=== PATIENT | female | born 1940 | race Caucasian/White ===

== ENCOUNTER 2024-09-01 10:36 | Emergency (ER) | payer OTHER ==
[~2024-09-01] VITALS: Ht 157.5 cm; Wt 68.0 kg
[2024-09-01 10:40] VITALS: BP_SYST 124; PULSE 87; RESP 19; TEMP 98.3; O2SAT 96
[2024-09-01 11:49] LABS: BILIRUBIN,URINE NEGATIVE (NEGATIVE); BLOOD, URINE NEGATIVE (NEGATIVE); CLARITY/URINE CLEAR (CLEAR); COLOR,URINE YELLOW (YELLOW); GLUCOSE,URINE 2+ (NEGATIVE); KETONES,URINE NEGATIVE (NEGATIVE); LEUKOCYTE ESTERASE ,URINE NEGATIVE (NEGATIVE); NITRITE, URINE NEGATIVE (NEGATIVE); PROTEIN URINE 1+ (NEGATIVE); UROBILINOGEN,URINE 0.2 (0.2-1.0)
[2024-09-01 11:55] LABS: BASOPHILS # (AUTO) 0.1 K/uL (0.0-0.2); BASOPHILS % (AUTO) 0.5 % (0.0-2.0); EOSINOPHILS # (AUTO) 0.5 K/uL (0.0-0.4); EOSINOPHILS % (AUTO) 4.8 % (0.0-4.0); HEMATOCRIT 35.8 % (36-48); HEMOGLOBIN 11.7 g/dL (12.0-16.0); LYMPHOCYTES # (AUTO) 0.8 K/uL (1.0-5.5); LYMPHOCYTES % (AUTO) 8.1 % (20.5-51.5); MEAN CORPUSCULAR HEMOGLOBIN 30 pg (27-31); MEAN CORPUSCULAR HGB CONC 33 % (32-36); MEAN CORPUSCULAR VOLUME 93 fL (79.0-98.0); MONOCYTES # (AUTO) 0.6 K/uL (0.0-1.0); MONOCYTES % (AUTO) 6.1 % (1.7-9.3); NEUTROPHILS # (AUTO) 8.2 K/uL (1.8-7.7); NEUTROPHILS % (AUTO) 80.5 % (40.0-70.0); PLATELET COUNT (AUTO) 216 K/uL (130-430); RED BLOOD CELL COUNT(AUTO) 3.85 MIL/uL (4.2-6.2); RED CELL DISTRIBUTION WIDTH 14.6 % (9.0-15.0); WHITE BLOOD COUNT (AUTO) 10.1 K/uL (4.8-10.8)
[2024-09-01 12:07] LABS: BACTERIA,URINE None Seen /HPF (None Seen); COARSE GRANULAR CASTS,URINE 0-3 /LPF (None Seen); RBC,URINE 0-3 /HPF (0-3); WBC,URINE 0-3 /HPF (0-3)
[2024-09-01 12:17] LABS: ALANINE AMINOTRANSFERASE 12 U/L (12-78); ANION GAP 10 (5-15); ASPARTATE AMINOTRANSFERASE 11 U/L (10-37); BILIRUBIN,DIRECT 0.1 mg/dL (0.0-0.3); CALCIUM 8.1 mg/dL (8.4-11.0); CARBON DIOXIDE 23 mmol/L (23-29); CHLORIDE 102 mmol/L (98-107); CREATININE 2.26 mg/dL (0.55-1.30); GLUCOSE 135 mg/dL (74-106); PHOSPHORUS 2.8 mg/dL (2.7-4.5); POTASSIUM 4.1 mmol/L (3.5-5.1); SODIUM SERUM 135 mmol/L (136-145); THYROID STIMULATING HORMONE 1.62 uIu/mL (0.34-4.82); TOTAL BILIRUBIN 0.2 mg/dL (0.0-1.0); TOTAL PROTEIN, SERUM 5.5 g/dL (6.4-8.3); UREA NITROGEN, BLOOD 36 mg/dL (8-21)
[2024-09-01 15:30] VITALS: BP_SYST 122; PULSE 66; RESP 20; TEMP 97; O2SAT 96
== END 2024-09-01 15:30 ==
LOC: SED 10:36
DX: E11.649 Type 2 diabetes mellitus with hypoglycemia without coma (principal); E11.22 Type 2 diabetes mellitus with diabetic chronic kidney disease; R53.1 Weakness; M54.9 Dorsalgia, unspecified; R51.9 Headache, unspecified; I12.9 Hypertensive chronic kidney disease with stage 1 through stage 4 chronic kidney disease, or unspecified chronic kidney disease; N18.4 Chronic kidney disease, stage 4 (severe); E78.5 Hyperlipidemia, unspecified
CPT/HCPCS: 36415; 70450-TC; 71045; 80048; 80076; 81000; 81001; 81015; 83735; 84100; 84443; 84484; 85025; 93005; 99285